=== PATIENT | male | born 1935 | race Caucasian/White ===

== ENCOUNTER 2017-05-02 07:51 | Emergency (ER) | payer MEDICARE, OTHER ==
[2017-05-02 07:52] VITALS: BP 139/81; PULSE 105; RESP 14; TEMP 97.9; O2SAT 97
[2017-05-02 08:23] VITALS: PULSE 87; RESP 18; O2SAT 97
[2017-05-02] MEDS ORDERED: XARE20TA PO (08:26)
[2017-05-02] MEDS ORDERED: CARV6.252 PO (08:26)
[2017-05-02] MEDS ORDERED: ASPI-516 CHEW (08:26)
[2017-05-02] MEDS ORDERED: SODIUM CHLORIDE 0.9% FLUSH 10 ML FLUSH IVF PRN (08:30)
--- NOTE | 2017-05-02 08:48 | PD ---
HPI Chief Complaint: Head Injury Time Seen by Provider: 08:22 Travel History International Travel<30 days: No Contact w/Intl Traveler<30days: No Traveled to known affect area: No History of Present Illness HPI This is an 82-year-old male with history of atrial fibrillation, previous CVA, who presents here with complaints of a right temporal scalp laceration after mechanical fall. Patient states she was getting out of bed when he tripped and fell and struck his head on the dresser. The patient denies any loss of consciousness. The patient is on Xarelto for his atrial fibrillation. He reports pain at the back of his neck. There is no numbness or tingling of his extremities. Patient does report dizziness when turning from [id number]. Her no other complaints time my examination. PFSH Past Medical History Hx Anticoagulant Therapy: Yes (XARELTO) Atrial Fibrillation: Yes Heart Rhythm Problems: Yes Cerebrovascular Accident: Yes Social History Alcohol Use: Yes Tobacco Use: No Substance Use: No Allergies-Medications (Allergen,Severity, Reaction): Coded Allergies: No Known Allergies (Unverified , 05/02/17) Reported Meds & Prescriptions Reported Meds & Active Scripts Active Reported Aspirin 81 Mg Chew 81 Mg CHEW DAILY Carvedilol 6.25 Mg Tab 6.25 Mg PO BID Xarelto (Rivaroxaban) 20 Mg Tab 20 Mg PO DAILY Review of Systems Except as stated in HPI: all other systems reviewed are Neg General / Constitutional: No: Fever, Chills HENT: Positive: Headaches, Lightheadedness, Neck Pain (right temporal), No: Neck Stiffness Cardiovascular: Positive: Irregular Rhythm, No: Chest Pain or Discomfort (with movement from side to side), Palpitations Respiratory: No: Cough (history of), Shortness of Breath Gastrointestinal: No: Nausea, Vomiting, Abdominal Pain Musculoskeletal: No: Weakness, Pain Skin: Positive Other (laceration to the right temporal area) Neurologic: Positive: Dizziness, Headache (right temporal area) Physical Exam Narrative GENERAL: Well developed well-nourished male in no acute respiratory tract. The patient does have a dressing on the head with blood noted at the right temporoparietal area soaking through the dressing. SKIN: Focused skin assessment warm/dry. HEAD: Normocephalic. Patient has a 1 cm laceration to the right temporoparietal area. There is an arterial that is bleeding. EYES: No scleral icterus. No injection or drainage. ENT: No nasal bleeding or discharge. Mucous membranes pink and moist. NECK: Trachea midline. No JVD. The patient does have mild paraspinous tenderness at the C4-C5 area. There is no posterior spinous process tenderness or deformity.. CARDIOVASCULAR: Irregularly irregular. Rate in the 80s and 90s. RESPIRATORY: No accessory muscle use. Clear to auscultation. Breath sounds equal bilaterally. GASTROINTESTINAL: Abdomen soft, non-tender, nondistended. Hepatic and splenic margins not palpable. MUSCULOSKELETAL: No obvious deformities. No clubbing. No cyanosis. No edema. NEUROLOGICAL: Awake and alert. No obvious cranial nerve deficits. Motor grossly within normal limits. Normal speech. Data Data Last Documented VS Vital Signs Date Time Temp Pulse Resp B/P (MAP) Pulse Ox O2 Delivery O2 Flow Rate FiO2 05/02/17 08:23 87 18 97 Room Air 05/02/17 07:52 97.9 Orders Orders Complete Blood Count With Diff (05/02/17 08:22) Ct Brain W/O Iv Contrast(Rout) (05/02/17 08:22) Ecg Monitoring (05/02/17 08:22) Iv Access Insert/Monitor (05/02/17 08:22) Oximetry (05/02/17 08:22) Sodium Chloride 0.9% Flush (Ns Flush) (05/02/17 08:30) Ct Cerv Spine W/O Contrast (05/02/17 08:22) Lidocai-Epi 1%-1:100,000 Inj (Xylocaine- (05/02/17 10:00) Cap,Shampoo/Cond Rinse Free Ea (05/02/17 09:51) Labs Laboratory Tests Test 05/02/17 08:40 White Blood Count 7.5 TH/MM3 Red Blood Count 4.68 MIL/MM3 Hemoglobin 16.3 GM/DL Hematocrit 49.5 % Mean Corpuscular Volume 105.9 FL Mean Corpuscular Hemoglobin 34.8 PG Mean Corpuscular Hemoglobin Concent 32.9 % Red Cell Distribution Width 13.8 % Platelet Count 229 TH/MM3 Mean Platelet Volume 8.6 FL Neutrophils (%) (Auto) 68.7 % Lymphocytes (%) (Auto) 22.1 % Monocytes (%) (Auto) 7.7 % Eosinophils (%) (Auto) 1.3 % Basophils (%) (Auto) 0.2 % Neutrophils # (Auto) 5.1 TH/MM3 Lymphocytes # (Auto) 1.7 TH/MM3 Monocytes # (Auto) 0.6 TH/MM3 Eosinophils # (Auto) 0.1 TH/MM3 Basophils # (Auto) 0.0 TH/MM3 CBC Comment DIFF FINAL Differential Comment MDM Medical Decision Making Medical Screen Exam Complete: Yes Emergency Medical Condition: Yes Differential Diagnosis Scalp laceration versus skull fracture versus intracranial hemorrhage Narrative Course 82-year-old male with history of AYvonne alcaraz, who is on Xarelto, presents after a mechanical fall and striking his head. Patient had a 1 cm laceration to his right temporal parietal area. There was a an arteriole that was bleeding. I placed 3 sonal in the area. It decreased the oozing from the arterial. A pressure dressing was placed and the patient was taken to CAT scan for CT head and neck. CT head and neck show no evidence of acute process. The patient's blood count is stable. He's had 2 further sutures placed by Irina Sargent. Rectal condition is he'll have sutures removed in 7-10 days. He is instructed to keep it clean and dry. Also recommend ice pack to the head. He'll be given a head injury sheet and if there is any changes, his family members are instructed to bring him back for further evaluation. Diagnosis Primary Impression: right temporal parietal scalp laceration Additional Impressions: Closed head injury History of atrial fibrillation Anticoagulated Patient Instructions: General Instructions Additional Instructions: Keep wound clean and dry. Return if any evidence of infection. Sutures and sonal removed in 7-10 days. Return if bleeding returns or any other reason the concerns her. Return if change in mentation or any other reason the concerns. Ice to the area 2-3 times a day for 2 days. Med/Other Pt SpecificInfo: Wound Care, Other (head injury instructions) Disposition: 01 DISCHARGE HOME Condition: Stable Otto Hudson MD May 02, 2017 08:48
[2017-05-02 08:54] LABS: AUTOMATED NEUTROPHIL # 5.1 TH/MM3 (1.8-7.7); BASOPHIL % 0.2 % (0.0-2.0); EOSINOPHIL # 0.1 TH/MM3 (0-0.4); EOSINOPHIL % 1.3 % (0.0-4.0); HEMATOCRIT 49.5 % (39.0-51.0); HEMOGLOBIN 16.3 GM/DL (13.0-17.0); LYMPH % 22.1 % (9.0-44.0); LYMPHOCYTE # 1.7 TH/MM3 (1.0-4.8); MEAN CELL VOLUME 105.9 FL (80.0-100.0); MEAN CORPUSCULAR HEMOGLOBIN 34.8 PG (27.0-34.0); MEAN CORPUSCULAR HGB CONC 32.9 % (32.0-36.0); MEAN PLATELET VOLUME 8.6 FL (7.0-11.0); MONO % 7.7 % (0.0-8.0); MONOCYTE # 0.6 TH/MM3 (0-0.9); NEUT % 68.7 % (16.0-70.0); PLATELET COUNT 229 TH/MM3 (150-450); RED BLOOD COUNT 4.68 MIL/MM3 (4.50-5.90); RED CELL DISTRIBUTION WIDTH 13.8 % (11.6-17.2); WHITE BLOOD COUNT 7.5 TH/MM3 (4.0-11.0)
--- NOTE | 2017-05-02 09:01 | RADRPT ---
EXAM DATE/TIME: 05/02/2017 08:46 [facility] COMPARISON: No previous studies available for comparison. INDICATIONS : Trauma, fall today onto head. RADIATION DOSE: 40.24 CTDIvol (mGy) MEDICAL HISTORY : Stroke. SURGICAL HISTORY : None. ENCOUNTER: Initial ACUITY: 1 day PAIN SCALE: 7/10 LOCATION: Bilateral head TECHNIQUE: Multiple contiguous axial images were obtained of the head. Using automated exposure control and adj ustment of the mA and/or kV according to patient size, radiation dose was kept as low as reasonably a chievable to obtain optimal diagnostic quality images. DICOM format image data is available electro nically for review and comparison. FINDINGS: CEREBRUM: The ventricles are normal for age. No evidence of midline shift, mass lesion, hemorrhage or acute in farction. Old infarct left orbital frontal region. No extra-axial fluid collections are seen. Mild ventricular prominence POSTERIOR FOSSA: The cerebellum and brainstem are intact. The 4th ventricle is midline. The cerebellopontine angle i s unremarkable. EXTRACRANIAL: The visualized portion of the orbits is intact. SKULL: The calvaria is intact. No evidence of skull fracture. CONCLUSION: Negative for acute traumatic injury Mild ventricular prominence Luigi Ortiz MD FACR on May 02, 2017 at 8:56 Board Certified Radiologist. This report was verified electronically.
--- NOTE | 2017-05-02 09:13 | RADRPT ---
EXAM DATE/TIME: 05/02/2017 08:46 [facility] COMPARISON: No previous studies available for comparison. INDICATIONS : Trauma, fall today onto head. RADIATION DOSE: 22.47 CTDIvol (mGy) MEDICAL HISTORY : Stroke. SURGICAL HISTORY : None. ENCOUNTER: Initial ACUITY: 1 day PAIN SCALE: 4/10 LOCATION: Bilateral neck TECHNIQUE: Volumetric scanning of the cervical spine was performed. Multiplanar reconstructions in the sagittal, coronal and oblique axial planes were performed. Using automated exposure control and adjustment o f the mA and/or kV according to patient size, radiation dose was kept as low as reasonably achievable to obtain optimal diagnostic quality images. DICOM format image data is available electronically f or review and comparison. FINDINGS: VERTEBRAE: Normal vertebral body height. ALIGNMENT: No evidence of subluxation. C2-C3: The bony spinal canal is normal in size. No evidence of disc bulge or herniation. The neural forami na are bilaterally patent. C3-C4: Moderate facet disease is present with bilateral neural foraminal encroachment. Large anterior osteo phytes are noted. C4-C5: Moderate facet disease is present with bilateral foraminal encroachment worse on the left C5-C6: Moderate uncinate ridging is present with mild spinal stenosis. Moderate bilateral foraminal encroac hment worse on the right C6-C7: Mild right-sided neural foraminal encroachment. C7-T1: The bony spinal canal is normal in size. No evidence of disc bulge or herniation. The neural forami na are bilaterally patent. Moderate vascular calcifications worse at the right carotid bifurcation. CONCLUSION: Degenerative changes, negative for fracture Moderate carotid calcifications on the right. Luigi Ortiz MD FACR on May 02, 2017 at 9:08 Board Certified Radiologist. This report was verified electronically.
[2017-05-02] MEDS ORDERED: LIDOCAINE 1%/EPINEPHrine 1:100,000 SOLN 20 ML VIAL INFIL ONE (10:00)
--- NOTE | 2017-05-02 10:25 | PD ---
Physical Exam Date Seen by Provider: May 02, 2017 Narrative 82-year-old male presents to the emergency department after a fall with head trauma. I was asked by Dr. Hudson to perform a laceration repair to the right temporal area. Please see his note for further information regarding patient's condition. LACERATION LOCATION: Right for head LENGTH: 1-1/2 cm NUMBER OF STITCHES/SONAL: 3 sonal, 2 5-0 Prolene REPAIR: The area of the laceration was prepped with Betadine and sterilely draped. The laceration was infiltrated with 1% lidocaine without epinephrine. The wound was copiously irrigated and explored without evidence of foreign body, tendon injury or neurovascular injury. The wound was closed using 5-0 Prolene. This was a single layer repair. A sterile dressing was applied. The patient was advised to keep the dressing clean and dry. Patient tolerated the procedure well. Data Data Last Documented VS Vital Signs Date Time Temp Pulse Resp B/P (MAP) Pulse Ox O2 Delivery O2 Flow Rate FiO2 05/02/17 10:36 05/02/17 08:23 87 18 97 Room Air 05/02/17 07:52 97.9 Orders Orders Complete Blood Count With Diff (05/02/17 08:22) Ct Brain W/O Iv Contrast(Rout) (05/02/17 08:22) Ecg Monitoring (05/02/17 08:22) Iv Access Insert/Monitor (05/02/17 08:22) Oximetry (05/02/17 08:22) Sodium Chloride 0.9% Flush (Ns Flush) (05/02/17 08:30) Ct Cerv Spine W/O Contrast (05/02/17 08:22) Lidocai-Epi 1%-1:100,000 Inj (Xylocaine- (05/02/17 10:00) Cap,Shampoo/Cond Rinse Free Ea (05/02/17 09:51) Ed Discharge Order (05/02/17 10:21) Labs Laboratory Tests Test 05/02/17 08:40 White Blood Count 7.5 TH/MM3 Red Blood Count 4.68 MIL/MM3 Hemoglobin 16.3 GM/DL Hematocrit 49.5 % Mean Corpuscular Volume 105.9 FL Mean Corpuscular Hemoglobin 34.8 PG Mean Corpuscular Hemoglobin Concent 32.9 % Red Cell Distribution Width 13.8 % Platelet Count 229 TH/MM3 Mean Platelet Volume 8.6 FL Neutrophils (%) (Auto) 68.7 % Lymphocytes (%) (Auto) 22.1 % Monocytes (%) (Auto) 7.7 % Eosinophils (%) (Auto) 1.3 % Basophils (%) (Auto) 0.2 % Neutrophils # (Auto) 5.1 TH/MM3 Lymphocytes # (Auto) 1.7 TH/MM3 Monocytes # (Auto) 0.6 TH/MM3 Eosinophils # (Auto) 0.1 TH/MM3 Basophils # (Auto) 0.0 TH/MM3 CBC Comment DIFF FINAL Differential Comment MDM Supervised Visit with AICHA: No Diagnosis Primary Impression: right temporal parietal scalp laceration Additional Impressions: Closed head injury History of atrial fibrillation Anticoagulated Patient Instructions: General Instructions, Laceration (ED) Departure Forms: Tests/Procedures Additional Instruction: Keep wound clean and dry. Return if any evidence of infection. Sutures and sonal removed in 7-10 days. Return if bleeding returns or any other reason the concerns her. Return if change in mentation or any other reason the concerns. Ice to the area 2-3 times a day for 2 days. Disposition: 01 DISCHARGE HOME Condition: Stable Gwendolyn Soto May 02, 2017 10:25
== END 2017-05-02 10:41 | disposition home or self-care (01) ==
LOC: NEPE 07:51
DX: S01.01XA Laceration without foreign body of scalp, initial encounter (principal); W01.190A Fall on same level from slipping, tripping and stumbling with subsequent striking against furniture, initial encounter; I48.91 Unspecified atrial fibrillation; Z79.01 Long term (current) use of anticoagulants; Z86.73 Personal history of transient ischemic attack (TIA), and cerebral infarction without residual deficits
CPT/HCPCS: 70450; 72125; 85025; 99285

== ENCOUNTER 2017-09-15 19:40 | Observation (INO) | payer MEDICARE, OTHER ==
[~2017-09-15] VITALS: Ht 188 cm; Wt 90.4 kg
[~2017-09-15 19:40] MED LIST: ASPI-516 CHEW; CARV6.252 PO; XARE20TA PO
[2017-09-15 19:55] VITALS: BP 168/72; PULSE 88; RESP 20; TEMP 98; O2SAT 98
[2017-09-15 19:56] VITALS: O2SAT 96
[2017-09-15] MEDS ORDERED: DIPHTH/TETANUS/ACEL PERTUSSIS (BOOSTER) 0.5 ML VIAL/PFS IM ONE (19:57)
[2017-09-15] MEDS ORDERED: ceFAZolin 2 GM PREMIX 50 ML ONE (19:57)
--- NOTE | 2017-09-15 20:03 | PD ---
HPI Chief Complaint: Trauma (Alert) Time Seen by Provider: 20:01 Travel History International Travel<30 days: No Contact w/Intl Traveler<30days: No History of Present Illness HPI Patient 82-year-old male presents emergency department for evaluation after a ground-level fall, he is on Eliquis and per hospital protocol this is a trauma alert level 2,, according to EMS he was drinking tonight, while walking on the street he apparently collapsed onto the concrete, he is unable to provide any history as to whether or not he blacked out or not, he is a GCS of 14, fairly confused, oriented to self only. Family states he is usually alert and awake and oriented and has periods where he is confused. No one was with him at the time of the events occurred they do not know if he blacked out or not. Patient history is somewhat limited given his altered mental status. PFSH Past Medical History Hx Anticoagulant Therapy: Yes (XARELTO) Atrial Fibrillation: Yes Heart Rhythm Problems: Yes Cerebrovascular Accident: Yes Social History Alcohol Use: Yes Tobacco Use: No Substance Use: No Allergies-Medications (Allergen,Severity, Reaction): Coded Allergies: No Known Allergies (Unverified , 05/02/17) Reported Meds & Prescriptions Reported Meds & Active Scripts Active Reported Aspirin 81 Mg Chew 81 Mg CHEW DAILY Carvedilol 6.25 Mg Tab 6.25 Mg PO BID Xarelto (Rivaroxaban) 20 Mg Tab 20 Mg PO DAILY Review of Systems Except as stated in HPI: all other systems reviewed are Neg Physical Exam Narrative GENERAL: Well-developed, well-nourished, obvious facial trauma. SKIN: There is contusion and hematoma over the right eyebrow, periorbital ecchymosis, gradually worsening while in the emergency department. There is also abrasion and contusion to the right wrist, some mild abrasions bilateral knees. HEAD: No davidson sign, periorbital ecchymosis on the right eye as above. Face is stable.. Normocephalic. EYES: Pupils equal and round. No scleral icterus. No injection or drainage. Pupils are 4 mm equal round and reactive. ENT: No nasal bleeding or discharge. Mucous membranes pink and moist. No septal hematoma. TMs are clear bilaterally peer NECK: Trachea midline. No JVD. CARDIOVASCULAR: Regular rate and rhythm. No murmur appreciated. RESPIRATORY: No accessory muscle use. Clear to auscultation. Breath sounds equal bilaterally. GASTROINTESTINAL: Abdomen soft, non-tender, nondistended. Hepatic and splenic margins not palpable. MUSCULOSKELETAL: Swelling of the right wrist over the ulna. Pulse motor and sensory intact distally in all 4 extremities, the remainder of the extremity exam of upper and lower extremities including the shoulders elbows left hand hips knees ankles and feet are atraumatic. No midline CT or L-spine tenderness. No clubbing. No cyanosis. No edema. NEUROLOGICAL: Awake and alert. No obvious cranial nerve deficits. Motor grossly within normal limits. Normal speech. PSYCHIATRIC: Appropriate mood and affect; insight and judgment normal. Data Data Last Documented VS Vital Signs Date Time Temp Pulse Resp B/P (MAP) Pulse Ox O2 Delivery O2 Flow Rate FiO2 09/15/17 22:35 98 20 151/77 (101) 98 Nasal Cannula 2.00 09/15/17 21:44 98.0 Orders Orders Cefazolin 2 Gm Premix (Ancef 2 Gm Premix (09/15/17 19:57) [id number] (Booster) Inj (Boostrix (09/15/17 19:57) I-Stat Profile (09/15/17 20:02) Complete Blood Count With Diff (09/15/17 20:02) Prothrombin Time / Inr (Pt) (09/15/17 20:02) Act Partial Throm Time (Ptt) (09/15/17 20:02) Type And Screen (09/15/17 20:02) Alcohol (Ethanol) (09/15/17 20:02) Urinalysis - C+S If Indicated (09/15/17 20:02) Drug Screen, Random Urine (09/15/17 20:02) Chest, Single Ap (09/15/17 20:02) Pelvis, Ap Only (Routine) (09/15/17 20:02) Ct Brain W/O Iv Contrast(Rout) (09/15/17 20:02) Ct Cerv Spine W/O Contrast (09/15/17 20:02) Ct Abd/Pel W Iv Contrast(Rout) (09/15/17 20:02) Ct Thorax/ Chest W Iv Contrast (09/15/17 20:02) Ct Thor Spine W Iv Contrast (09/15/17 20:02) Ct Lumb Spine W Iv Contrast (09/15/17 20:02) Ct Facial Bones W/O Iv Cont (09/15/17 20:02) Iv Access Insert/Monitor (09/15/17 20:02) Ecg Monitoring (09/15/17 20:02) Oximetry (09/15/17 20:02) Oxygen Administration (09/15/17 20:02) Electrocardiogram (09/15/17 ) Hand, Complete (Eqj5qly) (09/15/17 ) Iohexol 350 Inj (Omnipaque 350 Inj) (09/15/17 20:31) Troponin I (09/15/17 20:00) Splinting (09/15/17 ) Admit Order (Ed Use Only) (09/15/17 ) Aspirin Chew (Aspirin Chew) (09/16/17 09:00) Carvedilol (Coreg) (09/15/17 22:45) Labs Laboratory Tests Test 09/15/17 20:00 09/15/17 21:40 White Blood Count 8.6 TH/MM3 Red Blood Count 5.05 MIL/MM3 Hemoglobin 17.3 GM/DL Bedside Hemoglobin 17.0 G/DL Hematocrit 51.7 % Bedside Hematocrit 50.0 % Mean Corpuscular Volume 102.5 FL Mean Corpuscular Hemoglobin 34.3 PG Mean Corpuscular Hemoglobin Concent 33.5 % Red Cell Distribution Width 13.6 % Platelet Count 228 TH/MM3 Mean Platelet Volume 9.1 FL Neutrophils (%) (Auto) 56.5 % Lymphocytes (%) (Auto) 32.4 % Monocytes (%) (Auto) 9.5 % Eosinophils (%) (Auto) 1.2 % Basophils (%) (Auto) 0.4 % Neutrophils # (Auto) 4.8 TH/MM3 Lymphocytes # (Auto) 2.8 TH/MM3 Monocytes # (Auto) 0.8 TH/MM3 Eosinophils # (Auto) 0.1 TH/MM3 Basophils # (Auto) 0.0 TH/MM3 CBC Comment DIFF FINAL Differential Comment Prothrombin Time 12.2 SEC Prothromb Time International Ratio 1.2 RATIO Activated Partial Thromboplast Time 28.9 SEC Bedside Sodium 139 MMOL/L Bedside Potassium 4.6 MMOL/L Bedside Chloride 104 MMOL/L Bedside Blood Urea Nitrogen 11 MG/DL Bedside Creatinine 1.2 MG/DL Bedside Glucose 130 MG/DL Troponin I LESS THAN 0.02 NG/ML Ethyl Alcohol Level 155 MG/DL Urine Color LIGHT-YELLOW Urine Turbidity CLEAR Urine pH 7.0 Urine Specific [place] 1.039 Urine Protein TRACE mg/dL Urine Glucose (UA) NEG mg/dL Urine Ketones NEG mg/dL Urine Occult Blood NEG Urine Nitrite NEG Urine Bilirubin NEG Urine Urobilinogen LESS THAN 2.0 MG/DL Urine Leukocyte Esterase TRACE Urine RBC 1 /hpf Urine WBC 3 /hpf Microscopic Urinalysis Comment CULT NOT INDICATED Urine Opiates Screen NEG Urine Barbiturates Screen NEG Urine Amphetamines Screen NEG Urine Benzodiazepines Screen NEG Urine Cocaine Screen NEG Urine Cannabinoids Screen NEG MDM Medical Screen Exam Complete: Yes Emergency Medical Condition: Yes Differential Diagnosis Syncope, head injury, neck injury, pleural effusion Narrative Course Patient room to the emergency department, altered mental status after head injury, concussion is considered, CT head shows evidence of prior infarct but no acute injury. C-spine cleared by radiograph CAT scan and the c-collar was removed. Patient does have a radial styloid fracture. The patient was discussed with Dr. boateng on arrival and he recommended a gupta scan. He has not evaluated the patient personally but after we have discussed the radiographic findings he is clear the patient from a traumatic standpoint. At this time patient still remains somewhat altered, will ask for hospitalist observation Placed in thumb spica. Can follow up with orthopedics as outpatient. Trauma Alert - Level Two Trauma Alert Level Two: Full trauma team activate Diagnosis Diagnosis: Primary Impression: Syncope Additional Impressions: Head injury, closed Periorbital ecchymosis Radial styloid fracture Admitting Physician Requests: Observation Condition: Stable Jonathan Vang MD September 15, 2017 20:03
--- NOTE | 2017-09-15 20:17 | RADRPT ---
EXAM DATE/TIME: 09/15/2017 19:54 [facility] COMPARISON: No previous studies available for comparison. INDICATIONS : Trauma alert. Fall with altered mental status. MEDICAL HISTORY : Stroke. SURGICAL HISTORY : None. ENCOUNTER: Initial ACUITY: 1 day PAIN SCORE: Non-responsive. LOCATION: Bilateral pelvis FINDINGS: A single frontal view of the pelvis demonstrates no evidence of fracture. The bony pelvic ring is in tact. Bony mineralization is normal. The soft tissues are intact. CONCLUSION: No definite fracture is seen. Carl Hurd MD on September 15, 2017 at 20:14 Board Certified Radiologist. This report was verified electronically.
--- NOTE | 2017-09-15 20:27 | RADRPT ---
EXAM DATE/TIME: 09/15/2017 19:54 [facility] COMPARISON: No previous studies available for comparison. INDICATIONS : Trauma alert. Fall with altered mental status. MEDICAL HISTORY : Stroke. SURGICAL HISTORY : None. ENCOUNTER: Initial ACUITY: 1 day PAIN SCORE: Non-responsive. LOCATION: Bilateral chest FINDINGS: The heart size appears enlarged. The lungs are clear. A fracture is not clearly seen. No effusion is seen. CONCLUSION: No acute disease. Carl Hurd MD on September 15, 2017 at 20:24 Board Certified Radiologist. This report was verified electronically.
[2017-09-15] MEDS ORDERED: IOHEXOL 350 MG/ML 10 ML VIAL (for RAD DIAG) IVCONTRAST ONE (20:31)
--- NOTE | 2017-09-15 20:32 | RADRPT ---
EXAM DATE/TIME: 09/15/2017 20:01 [facility] COMPARISON: CT BRAIN W/O CONTRAST, May 02, 2017, 8:46. INDICATIONS : Trauma; fall. RADIATION DOSE: 56.35 CTDIvol (mGy) MEDICAL HISTORY : Non-responsive. SURGICAL HISTORY : Non-responsive. ENCOUNTER: Initial ACUITY: 1 day PAIN SCALE: Non-responsive LOCATION: cranial TECHNIQUE: Multiple contiguous axial images were obtained of the head. Using automated exposure control and adj ustment of the mA and/or kV according to patient size, radiation dose was kept as low as reasonably a chievable to obtain optimal diagnostic quality images. DICOM format image data is available electro nically for review and comparison. FINDINGS: CEREBRUM: The ventricles and cortical sulci are widened. There is an area of encephalomalacia at the posterior left frontal lobe. No evidence of midline shift, mass lesion, hemorrhage or acute infarction. No e xtra-axial fluid collections are seen. POSTERIOR FOSSA: The cerebellum and brainstem are intact. The 4th ventricle is midline. The cerebellopontine angle i s unremarkable. EXTRACRANIAL: There is a focal hematoma at the right frontal scalp. The visualized portion of the orbits is intact. SKULL: The calvaria is intact. No evidence of skull fracture. CONCLUSION: 1. No acute intracranial abnormality seen. 2. Prominent atrophy. 3. Right frontal scalp hematoma. Carl Hurd MD on September 15, 2017 at 20:28 Board Certified Radiologist. This report was verified electronically.
[2017-09-15 20:38] LABS: AUTOMATED NEUTROPHIL # 4.8 TH/MM3 (1.8-7.7); BASOPHIL % 0.4 % (0.0-2.0); EOSINOPHIL # 0.1 TH/MM3 (0-0.4); EOSINOPHIL % 1.2 % (0.0-4.0); HEMATOCRIT 51.7 % (39.0-51.0); HEMOGLOBIN 17.3 GM/DL (13.0-17.0); LYMPH % 32.4 % (9.0-44.0); LYMPHOCYTE # 2.8 TH/MM3 (1.0-4.8); MEAN CELL VOLUME 102.5 FL (80.0-100.0); MEAN CORPUSCULAR HEMOGLOBIN 34.3 PG (27.0-34.0); MEAN CORPUSCULAR HGB CONC 33.5 % (32.0-36.0); MEAN PLATELET VOLUME 9.1 FL (7.0-11.0); MONO % 9.5 % (0.0-8.0); MONOCYTE # 0.8 TH/MM3 (0-0.9); NEUT % 56.5 % (16.0-70.0); PLATELET COUNT 228 TH/MM3 (150-450); RED BLOOD COUNT 5.05 MIL/MM3 (4.50-5.90); RED CELL DISTRIBUTION WIDTH 13.6 % (11.6-17.2); WHITE BLOOD COUNT 8.6 TH/MM3 (4.0-11.0)
--- NOTE | 2017-09-15 20:39 | RADRPT ---
EXAM DATE/TIME: 09/15/2017 20:01 [facility] COMPARISON: No previous studies available for comparison. INDICATIONS : Trauma; fall. RADIATION DOSE: 21.96 CTDIvol (mGy) MEDICAL HISTORY : Non-responsive. SURGICAL HISTORY : Non-responsive. ENCOUNTER: Initial ACUITY: 1 day PAIN SCORE: Non-responsive LOCATION: facial TECHNIQUE: Volumetric scanning of the facial bones was performed. Using automated exposure control and adjustme nt of the mA and/or kV according to patient size, radiation dose was kept as low as reasonably achiev able to obtain optimal diagnostic quality images. DICOM format image data is available electronicall y for review and comparison. FINDINGS: ORBITS: The orbital and infraorbital osseous structures are intact. The retroconal structures have a normal configuration. No radiopaque foreign bodies are seen. NASAL BONE: The nasal bone and maxillary spine are intact ZYGOMATIC ARCHES: Symmetric without evidence of fracture. SINUSES: There is mild bilateral posterior ethmoid sinus disease. The maxillary and frontal sinuses are intact . No air-fluid levels seen. NASAL CAVITY: The nasal septum is intact and midline. The lacrimal ducts are intact. SOFT TISSUES: There is focal soft tissue swelling/hematoma in the right frontal scalp and right periorbital region. No radiopaque foreign bodies seen. INTRACRANIAL: No intracranial air seen. CRIBIFORM PLATE: Grossly intact. CONCLUSION: 1. Right frontal scalp and periorbital soft tissue swelling/hematoma. 2. No fracture seen. 3. Mild ethmoid sinus disease. Carl Hurd MD on September 15, 2017 at 20:31 Board Certified Radiologist. This report was verified electronically.
--- NOTE | 2017-09-15 20:45 | RADRPT ---
EXAM DATE/TIME: 09/15/2017 20:12 [facility] COMPARISON: No previous studies available for comparison. INDICATIONS : Trauma; fall. IV CONTRAST: 96 cc Omnipaque 350 (iohexol) IV ; Cumulative dose for multiple exams. RADIATION DOSE: 5.85 CTDIvol (mGy) ; Combined studies - Thorax/Abdomen/Pelvis MEDICAL HISTORY : Non-responsive. SURGICAL HISTORY : Non-responsive. ENCOUNTER: Initial ACUITY: 1 day PAIN SCALE: Non-responsive LOCATION: chest TECHNIQUE: Volumetric scanning of the chest was performed. Using automated exposure control and adjustment of t he mA and/or kV according to patient size, radiation dose was kept as low as reasonably achievable to obtain optimal diagnostic quality images. DICOM format image data is available electronically for review and comparison. Follow-up recommendations for detected pulmonary nodules are based at a minimum on nodule size and pa tient risk factors according to Fleischner Society Guidelines. FINDINGS: LUNGS: There is increased density at the subpleural posterior right upper and lower lobes and the posterior left lower lobe likely related to atelectasis. Contusion cannot see be excluded. PLEURA: There is a mild to moderate right pleural effusion and mild left effusion. MEDIASTINUM: The heart and great vessels demonstrate no acute abnormality. There is no mediastinal or hilar lymph adenopathy. AXILLAE: Within normal limits. No lymphadenopathy. SKELETAL: Within normal limits for patient age. There is an old healed left eighth rib fracture. MISCELLANEOUS: The patient is to have a CT of the abdomen and pelvis to follow. CONCLUSION: 1. Bilateral pleural effusions being mild to moderate on the right and mild on the left. 2. Subpleural areas of increased density likely related to atelectasis given the compressive changes of the effusions. Contusion cannot be excluded. Carl Hurd MD on September 15, 2017 at 20:37 Board Certified Radiologist. This report was verified electronically.
[2017-09-15 20:50] LABS: INTERNATIONAL NORMALIZED RATIO 1.2 RATIO; PROTHROMBIN TIME - PATIENT 12.2 SEC (9.8-11.6)
[2017-09-15 20:53] LABS: TROPONIN I LESS THAN 0.02 NG/ML (0.02-0.05)
--- NOTE | 2017-09-15 20:56 | RADRPT ---
EXAM DATE/TIME: 09/15/2017 20:12 [facility] COMPARISON: No previous studies available for comparison. INDICATIONS : Trauma; fall. IV CONTRAST: 96 cc Omnipaque 350 (iohexol) IV ; Cumulative dose for multiple exams. ORAL CONTRAST: No oral contrast ingested. RADIATION DOSE: 5.85 CTDIvol (mGy) ; Combined studies - Thorax/Abdomen/Pelvis MEDICAL HISTORY : Non-responsive. SURGICAL HISTORY : Non-responsive. ENCOUNTER: Initial ACUITY: 1 day PAIN SCALE: Non-responsive LOCATION: abdomen TECHNIQUE: Volumetric scanning of the abdomen and pelvis was performed. Using automated exposure control and ad justment of the mA and/or kV according to patient size, radiation dose was kept as low as reasonably achievable to obtain optimal diagnostic quality images. DICOM format image data is available electro nically for review and comparison. FINDINGS: LOWER LUNGS: There is a mild to moderate right pleural effusion and a mild left effusion. LIVER: Homogeneous density without lesion. There is a calcified granuloma. There is no dilation of the bili ronaldo tree. No calcified gallstones. SPLEEN: Normal size without lesion. There is a calcified granuloma. PANCREAS: Within normal limits. KIDNEYS: Normal in size and shape. There is no stone or hydronephrosis. There or small bilateral cysts. ADRENAL GLANDS: Within normal limits. VASCULAR: There is no aortic aneurysm. BOWEL/MESENTERY: There are scattered colonic diverticula. ABDOMINAL WALL: Within normal limits. RETROPERITONEUM: There is no lymphadenopathy. BLADDER: No wall thickening or mass. REPRODUCTIVE: Within normal limits. INGUINAL: There is no lymphadenopathy or hernia. MUSCULOSKELETAL: Within normal limits for patient age. There is degenerative change of the lumbar spine. CONCLUSION: 1. No acute abnormality seen. 2. Bilateral pleural effusions being worse on the right. 3. Calcified granulomas in the liver and spleen. 4. Colonic diverticula. Carl Hurd MD on September 15, 2017 at 20:50 Board Certified Radiologist. This report was verified electronically.
--- NOTE | 2017-09-15 21:01 | RADRPT ---
EXAM DATE/TIME: 09/15/2017 20:01 [facility] COMPARISON: CT CERVICAL SPINE W/O CONTRAST, May 02, 2017, 8:46. INDICATIONS : Trauma; fall. RADIATION DOSE: 24.2 CTDIvol (mGy) MEDICAL HISTORY : Non-responsive. SURGICAL HISTORY : Non-responsive. ENCOUNTER: Initial ACUITY: 1 day PAIN SCALE: Non-responsive LOCATION: neck TECHNIQUE: Volumetric scanning of the cervical spine was performed. Multiplanar reconstructions in the sagittal, coronal and oblique axial planes were performed. Using automated exposure control and adjustment o f the mA and/or kV according to patient size, radiation dose was kept as low as reasonably achievable to obtain optimal diagnostic quality images. DICOM format image data is available electronically f or review and comparison. FINDINGS: VERTEBRAE: Normal vertebral body height. ALIGNMENT: No evidence of subluxation. C2-C3: The bony spinal canal is normal in size. No evidence of disc bulge or herniation. There is left fac et hypertrophy. There is left neural foraminal narrowing. The right neural foramina is patent. C3-C4: The bony spinal canal is normal in size. No evidence of disc bulge or herniation. The neural forami na are bilaterally patent. There is bilateral facet hypertrophy. C4-C5: The bony spinal canal is normal in size. No evidence of disc bulge or herniation. There is bilatera l facet hypertrophy being worse on the left. The neural foramina are bilaterally patent. C5-C6: The disc demonstrates decreased height. There may be some fusion at the disc level. There is minimal posterior osteophytic ridging. Significant stenosis is not seen. There is uncovertebral hypertrophy a nd fusion. There is mild right neural foramina narrowing. The left neural foramina is patent. There i s mild left facet hypertrophy. C6-C7: The bony spinal canal is normal in size. No evidence of disc bulge or herniation. The neural forami na are bilaterally patent. There is moderate facet hypertrophy. C7-T1: The bony spinal canal is normal in size. No evidence of disc bulge or herniation. The neural forami na are bilaterally patent. There is facet hypertrophy being worse on the right. CONCLUSION: 1. No acute bony abnormality seen. 2. Chronic changes described above. Carl Hurd MD on September 15, 2017 at 20:54 Board Certified Radiologist. This report was verified electronically.
[2017-09-15 21:14] VITALS: RESP 20
--- NOTE | 2017-09-15 21:15 | RADRPT ---
EXAM DATE/TIME: 09/15/2017 20:23 [facility] COMPARISON: No previous studies available for comparison. INDICATIONS : Trauma alert. Fall with altered mental status. MEDICAL HISTORY : Stroke. SURGICAL HISTORY : None. ENCOUNTER: Initial ACUITY: 1 day PAIN SCORE: Non-responsive. LOCATION: Right upper extremity FINDINGS: Three view examination of the right hand demonstrates a fracture at the distal lateral radius extendi ng into the lateral aspect the radiocarpal joint. The age of this deformity is not known. Soft tissue swelling in this region is not seen. There appears be an old healed fracture deformity of the fifth metacarpal with some volar angulation of the distal fifth metacarpal. There is some degenerative frey ge of the carpal bones. There is soft tissue swelling seen over the distal medial forearm around the ulna. The ulna appears grossly intact. Vascular calcifications are seen. CONCLUSION: 1. Fracture deformity of the distal lateral radius. Age of this deformity is not known. 2. Focal soft tissue swelling at the distal medial forearm region. Carl Hurd MD on September 15, 2017 at 21:11 Board Certified Radiologist. This report was verified electronically.
--- NOTE | 2017-09-15 21:34 | RADRPT ---
EXAM DATE/TIME: 09/15/2017 20:12 [facility] COMPARISON: No previous studies available for comparison. INDICATIONS : Trauma; fall. IV CONTRAST: 96 cc Omnipaque 350 (iohexol) IV ; Cumulative dose for multiple exams. RADIATION DOSE: CTDIvol (mGy) ; Reconstructed from previous dataset, no dose MEDICAL HISTORY : Non-responsive. SURGICAL HISTORY : Non-responsive. ENCOUNTER: Initial ACUITY: 1 day PAIN SCALE: Non-responsive LOCATION: chest TECHNIQUE: Volumetric scanning of the thoracic spine was performed. Multiplanar reconstructions in the sagittal , coronal and oblique axial planes were performed. Using automated exposure control and adjustment o f the mA and/or kV according to patient size, radiation dose was kept as low as reasonably achievable to obtain optimal diagnostic quality images. DICOM format image data is available electronically fo r review and comparison. FINDINGS: The vertebral bodies of the thoracic spine are in normal alignment without evidence of subluxation. Vertebral body height is maintained. Marginal osteophytes are seen throughout. There is very promine nt hypertrophic change seen at the right T8-T9 facet extending anteriorly between the T8 and T9 pedic les at all on the posterior right vertebral body margins at this level. This is associated with narro wing of the right neural foramina. No fractures are seen. T1-T2: Normal. T2-T3: The thecal sac has a normal diameter. No evidence of disc bulge or protrusion. T3-T4: The thecal sac has a normal diameter. No evidence of disc bulge or protrusion. T4-T5: The thecal sac has a normal diameter. No evidence of disc bulge or protrusion. T5-T6: The thecal sac has a normal diameter. No evidence of disc bulge or protrusion. T6-T7: The thecal sac has a normal diameter. No evidence of disc bulge or protrusion. T7-T8: The thecal sac has a normal diameter. No evidence of disc bulge or protrusion. T8-T9: Again noted is the hypertrophy at the right facet, right lateral interpedicular region, and involving the posterior right lateral T8 and T9 vertebral bodies causing a moderate impression on the thecal s ac from the right. There is narrowing of the right neural foramina. No evidence of disc bulge or pro trusion. T9-T10: The thecal sac has a normal diameter. No evidence of disc bulge or protrusion. T10-T11: The thecal sac has a normal diameter. No evidence of disc bulge or protrusion. T11-T12: The thecal sac has a normal diameter. No evidence of disc bulge or protrusion. T12-L1: The thecal sac has a normal diameter. No evidence of disc bulge or protrusion. CONCLUSION: 1. No acute bony abnormality seen. 2. Chronic hypertrophic change at the right lateral T8-T9 level extending from the right facet joint to the posterior lateral right T8 and T9 vertebral bodies causing a moderate impression on the right lateral thecal sac. Carl Hurd MD on September 15, 2017 at 21:25 Board Certified Radiologist. This report was verified electronically.
--- NOTE | 2017-09-15 21:37 | RADRPT ---
EXAM DATE/TIME: 09/15/2017 20:12 [facility] COMPARISON: No previous studies available for comparison. INDICATIONS : Trauma; fall. IV CONTRAST: 96 cc Omnipaque 350 (iohexol) IV ; Cumulative dose for multiple exams. RADIATION DOSE: CTDIvol (mGy) ; Reconstructed from previous dataset, no dose MEDICAL HISTORY : Non-responsive. SURGICAL HISTORY : Non-responsive. ENCOUNTER: Initial ACUITY: 1 day PAIN SCALE: Non-responsive LOCATION: lower back TECHNIQUE: Volumetric scanning of the lumbar spine was performed. Multiplanar reconstructions in the sagittal, coronal and oblique axial planes were performed. Using automated exposure control and adjustment of the mA and/or kV according to patient size, radiation dose was kept as low as reasonably achievable t o obtain optimal diagnostic quality images. DICOM format image data is available electronically for review and comparison. FINDINGS: VERTEBRAE: Normal vertebral body height. ALIGNMENT: No evidence of subluxation. T12-L1: The thecal sac has a normal diameter. No evidence of disc bulge or protrusion. The neural foramina are patent bilaterally. L1-L2: The thecal sac has a normal diameter. No evidence of disc bulge or protrusion. The neural foramina are patent bilaterally. Anterior marginal osteophytes are present. L2-L3: The thecal sac has a normal diameter. No evidence of disc bulge or protrusion. The neural foramina are patent bilaterally. Anterior marginal osteophytes are seen. There is hypertrophic change between the spinous processes. L3-L4: The thecal sac has a normal diameter. No evidence of disc bulge or protrusion. The neural foramina are patent bilaterally. Anterior marginal osteophytes are seen. There is hypertrophic change between the spinous processes. L4-L5: The thecal sac has a normal diameter. No evidence of disc bulge or protrusion. The neural foramina are patent bilaterally. There is mild facet hypertrophy. L5-S1: The disc demonstrates decreased height. A significant impression on the thecal sac is not seen. There are anterior and lateral marginal osteophytes. There is moderate facet hypertrophy. There is narrowi ng of the neural foramina bilaterally. POST CONTRAST: No abnormal areas of enhancement are seen in the cord, dural paraspinal region. CONCLUSION: 1. No acute bony injury seen. 2. Chronic change as described above. Carl Hurd MD on September 15, 2017 at 21:32 Board Certified Radiologist. This report was verified electronically.
[2017-09-15 21:44] VITALS: BP 160/90; PULSE 100; RESP 20; TEMP 98; O2SAT 98
[2017-09-15 21:59] LABS: BILIRUBIN, URINE NEG (NEG); BLOOD, URINE NEG (NEG); GLUCOSE,URINE NEG (NEG); KETONE, URINE NEG (NEG); NITRITE,URINE NEG (NEG); URINE COLOR LIGHT-YELLOW (YELLW/STRAW); URINE LEUKOCYTE ESTERASE TRACE (NEG)
[2017-09-15 22:35] VITALS: BP 151/77; PULSE 98; RESP 20; O2SAT 98
[2017-09-15] MEDS ORDERED: SODIUM CHLORIDE 0.9% FLUSH 10 ML FLUSH IV FLUSH PRN (22:45)
[2017-09-15] MEDS: CARVEDILOL 6.25 MG TAB PO SCH (22:45)
--- NOTE | 2017-09-15 23:37 | RADRPT ---
EXAM DATE/TIME: 09/15/2017 22:49 [facility] COMPARISON: No previous studies available for comparison. INDICATIONS : Syncope. MEDICAL HISTORY : CVA. Anticoag therapy. A-fib. SURGICAL HISTORY : None. ENCOUNTER: Initial ACUITY: 1 day PAIN SCORE: 10/10 LOCATION: Bilateral neck PEAK SYSTOLIC VELOCITIES (cm/sec): ICA/CCA RATIO: Right: 1.1 Left: 0.6 ICA: Right: 62 Left: 63 CCA: Right: 56 Left: 101 ECA: Right: 277 Left: 103 VERTEBRAL: Right: 44 antegrade Left: 63 antegrade Elevated flow velocities and ICA/CCA ratios have been found to correlate with increased degrees of vessel stenosis, calculated as percentage of diameter relative to a normal segment of distal ICA/CCA FINDINGS: RIGHT CAROTID: No significant stenosis is visualized. Mild to moderate atherosclerotic disease is present. The wavef orms are within normal limits. LEFT CAROTID: No significant stenosis is visualized. Mild to moderate atherosclerotic disease is present. The wavef orms are within normal limits. VERTEBRAL ARTERIES: Antegrade flow is seen in both vertebral arteries. MISCELLANEOUS: None. CONCLUSION: Normal examination with mild to moderate atherosclerotic disease. Niles Tripp MD on September 15, 2017 at 23:35 Board Certified Radiologist. This report was verified electronically.
[2017-09-16] VITALS (11 sets, daily range): BP systolic 129–180; BP diastolic 64–103; PULSE 79–117; RESP 16–20; TEMP 97.6–98.4; O2SAT 93–96
[2017-09-16 00:14] LABS: ALBUMIN 2.5 GM/DL (3.4-5.0); BICARBONATE 20.2 MEQ/L (21.0-32.0); CALCIUM 6.2 MG/DL (8.5-10.1); CREATININE 0.79 MG/DL (0.60-1.30)
[2017-09-16 00:18] LABS: TOTAL BILIRUBIN ADULT 0.3 MG/DL (0.2-1.0); TOTAL PROTEIN 5.6 GM/DL (6.4-8.2)
[2017-09-16 00:20] LABS: CALCIUM-PROTEIN CORRECTED 6.9 MG/DL (8.5-10.1)
[2017-09-16] MEDS ORDERED: LORazepam 2 MG/ML VIAL IV PUSH ONE (04:00)
--- NOTE | 2017-09-16 04:25 | HHI.HP ---
HPI [facility] Primary Care Physician Unknown Admission Diagnosis Syncope Diagnoses: Travel History International Travel<30 Days: No Contact w/Intl Traveler <30 Da: No Traveled to Known Affected Are: No Sepsis Criteria Criteria Outcome: Meets multiple organ dys. criteria History of Present Illness 82-year-old male with a history of atrial fibrillation on Eliquis, history of CVA in the past, who presents to the ER after ground-level fall. He is uncertain of the circumstances of his fall, however had been noted to fall to the pavement. He denies going out drinking tonight, says he has not had any alcohol in 15 years. Alcohol level is elevated in the 150s. Patient was noted to be disoriented on admission, however on my exam he is somnolent but is oriented 3. He says feeling fine this morning, denies any chest pain, shortness of breath, nausea, vomiting. Does have a large cephalohematoma on the right side of head, reports pressure type pain at this location. Review of Systems Except as stated in HPI: all other systems reviewed are Neg Past Family Social History Past Medical History Atrial fibrillation Hypertension History of CVA Past Surgical History Patient denies any past surgical history Reported Medications Reported Meds & Active Scripts Active Reported Aspirin 81 Mg Chew 81 Mg CHEW DAILY Carvedilol 6.25 Mg Tab 6.25 Mg PO BID Xarelto (Rivaroxaban) 20 Mg Tab 20 Mg PO DAILY Allergies: Coded Allergies: No Known Allergies (Unverified , 05/02/17) Family History Patient says he is not sure of any parental past medical history Social History Non-smoker. Patient reports he quit drinking 50 years ago. He does admit that maybe he had some alcohol tonight. Denies any illicit drugs. Physical Exam Vital Signs Vital Signs Date Time Temp Pulse Resp B/P (MAP) Pulse Ox O2 Delivery O2 Flow Rate FiO2 09/16/17 00:47 98.2 104 18 163/81 (108) 93 175/85 (115) 09/15/17 22:35 98 20 151/77 (101) 98 Nasal Cannula 2.00 09/15/17 21:44 98.0 100 20 160/90 (113) 98 Room Air 09/15/17 21:14 20 09/15/17 21:14 Room Air 09/15/17 19:55 98.0 88 20 168/72 (104) 98 Physical Exam GENERAL: This is a well-nourished, well-developed patient, in no apparent distress. Patient is somnolent, but oriented 3. SKIN: No rashes, ecchymoses or lesions. Cool and dry. HEAD: She has very large cephalohematoma with superficial abrasion over the right orbit. Closure of right eyelid. Patient denies pain with gaze. EYES: Pupils equal round and reactive. Extraocular motions intact. No scleral icterus. No injection or drainage. ENT: Nose without bleeding, purulent drainage or septal hematoma. Throat without erythema, tonsillar hypertrophy or exudate. Uvula midline. Airway patent. NECK: Trachea midline. No JVD or lymphadenopathy. Supple, nontender, no meningeal signs. CARDIOVASCULAR: Regular rate and rhythm without murmurs, gallops, or rubs. RESPIRATORY: Clear to auscultation. Breath sounds equal bilaterally. No wheezes , rales, or rhonchi. GASTROINTESTINAL: Abdomen soft, non-tender, nondistended. No hepato-splenomegaly , or palpable masses. No guarding. MUSCULOSKELETAL: Extremities without clubbing, cyanosis, or edema. No joint tenderness, effusion, or edema noted. No calf tenderness. Negative Homans sign bilaterally. Patient has abrasions on the right arm, with right hand dressed. Superficial abrasions. NEUROLOGICAL: Awake and alert. Cranial nerves II through XII intact. Motor and sensory grossly within normal limits. Five out of 5 muscle strength in all muscle groups. Normal speech. Laboratory Laboratory Tests Test 09/15/17 20:00 09/15/17 21:40 09/15/17 23:30 White Blood Count 8.6 Red Blood Count 5.05 Hemoglobin 17.3 Bedside Hemoglobin 17.0 Hematocrit 51.7 Bedside Hematocrit 50.0 Mean Corpuscular Volume 102.5 Mean Corpuscular Hemoglobin 34.3 Mean Corpuscular Hemoglobin Concent 33.5 Red Cell Distribution Width 13.6 Platelet Count 228 Mean Platelet Volume 9.1 Neutrophils (%) (Auto) 56.5 Lymphocytes (%) (Auto) 32.4 Monocytes (%) (Auto) 9.5 Eosinophils (%) (Auto) 1.2 Basophils (%) (Auto) 0.4 Neutrophils # (Auto) 4.8 Lymphocytes # (Auto) 2.8 Monocytes # (Auto) 0.8 Eosinophils # (Auto) 0.1 Basophils # (Auto) 0.0 CBC Comment DIFF FINAL Differential Comment Prothrombin Time 12.2 Prothromb Time International Ratio 1.2 Activated Partial Thromboplast Time 28.9 Bedside Sodium 139 Bedside Potassium 4.6 Bedside Chloride 104 Bedside Blood Urea Nitrogen 11 Bedside Creatinine 1.2 Bedside Glucose 130 Troponin I LESS THAN 0.02 Ethyl Alcohol Level 155 Urine Color LIGHT-YELLOW Urine Turbidity CLEAR Urine pH 7.0 Urine Specific Bradford 1.039 Urine Protein TRACE Urine Glucose (UA) NEG Urine Ketones NEG Urine Occult Blood NEG Urine Nitrite NEG Urine Bilirubin NEG Urine Urobilinogen LESS THAN 2.0 Urine Leukocyte Esterase TRACE Urine RBC 1 Urine WBC 3 Microscopic Urinalysis Comment CULT NOT INDICATED Urine Opiates Screen NEG Urine Barbiturates Screen NEG Urine Amphetamines Screen NEG Urine Benzodiazepines Screen NEG Urine Cocaine Screen NEG Urine Cannabinoids Screen NEG Blood Urea Nitrogen 9 Creatinine 0.79 Random Glucose 106 Total Protein 5.6 Albumin 2.5 Calcium Level 6.2 Alkaline Phosphatase 15 Aspartate Amino Transf (AST/SGOT) 49 Alanine Aminotransferase (ALT/SGPT) 37 Total Bilirubin 0.3 Sodium Level 147 Potassium Level 3.5 Chloride Level 117 Carbon Dioxide Level 20.2 Anion Gap 10 Estimat Glomerular Filtration Rate 93 Protein Corrected Calcium 6.9 Result Diagram: 09/15/17199909/15/17 7480 Caprini VTE Risk Assessment Caprini VTE Risk Assessment: Mod/High Risk (score >= 2) Caprini Risk Assessment Model Point Value = 1 Point Value = 2 Point Value = 3 Point Value = 5 Age 41-60 Minor surgery BMI > 25 kg/m2 Swollen legs Varicose veins or History of unexplained or recurrent spontaneous Oral contraceptives or hormone replacement Sepsis (< 1 month) Serious lung disease, including pneumonia (< 1 month) Abnormal pulmonary function Acute myocardial infarction Congestive heart failure (< 1 month) History of inflammatory bowel disease Medical patient at bed rest Age 61-74 Arthroscopic surgery Major open surgery (> 45 min) Laparoscopic surgery (> 45 min) Malignancy Confined to bed (> 72 hours) Immobilizing plaster cast Central venous access Age >= 75 History of VTE Family history of VTE Factor V Leiden Prothrombin [id number] Lupus anticoagulant Anticardiolipin antibodies Elevated serum homocysteine Heparin-induced thrombocytopenia Other congenital or acquired thrombophilia Stroke (< 1 month) Elective arthroplasty Hip, pelvis, or leg fracture Acute spinal cord injury (< 1 month) Prophylaxis Regimen Total Risk Factor Score Risk Level Prophylaxis Regimen 0-1 Low Early ambulation 2 Moderate Order ONE of the following: *Sequential Compression Device (SCD) *Heparin 5000 units SQ BID 3-4 Higher Order ONE of the following medications: *Heparin 5000 units SQ TID *Enoxaparin/Lovenox 40 mg SQ daily (WT < 150 kg, CrCl > 30 mL/min) *Enoxaparin/Lovenox 30 mg SQ daily (WT < 150 kg, CrCl > 10-29 mL/min) *Enoxaparin/Lovenox 30 mg SQ BID (WT < 150 kg, CrCl > 30 mL/min) AND/OR *Sequential Compression Device (SCD) 5 or more Highest Order ONE of the following medications: *Heparin 5000 units SQ TID (Preferred with Epidurals) *Enoxaparin/Lovenox 40 mg SQ daily (WT < 150 kg, CrCl > 30 mL/min) *Enoxaparin/Lovenox 30 mg SQ daily (WT < 150 kg, CrCl > 10-29 mL/min) *Enoxaparin/Lovenox 30 mg SQ BID (WT < 150 kg, CrCl > 30 mL/min) AND *Sequential Compression Device (SCD) Assessment and Plan Assessment and Plan //Suspected syncope -Patient without any recollection of fall. Family apparently very concerned per ER report. -We will check echocardiogram, carotid ultrasound, Holter monitor. Monitor on telemetry. If all is negative with suspect this is likely secondary to alcohol intoxication on top of chronic dementia. //Toxic encephalopathy //Chronic dementia //Alcohol intoxication. =Alcohol level twice the legal driving limit on admission. //Hypernatremia. 147. Suspect possible lab error. Follow-up repeat. //Status post head injury //Right cephalohematoma, frontal -Hold anticoagulation for now. Continue to monitor. //Radial styloid fracture.. Immobilization. Consult orthopedics. //History of atrial fibrillation. On Xarelto at home. Holding Xarelto due to cephalhematoma. Continue Coreg, aspirin. Discussed Condition With Patient, nurse, ED physician Luis Duncan MD September 16, 2017 04:25
[2017-09-16] MEDS ORDERED: CALCIUM GLUCONATE INJ 1 GM in SODIUM CHLORIDE 0.9% INJ 100 ML IV ONE (04:45)
[2017-09-16] MEDS ORDERED: CARVEDILOL 6.25 MG TAB PO ONE (05:15)
[2017-09-16] MEDS ORDERED: LORazepam 1 MG TAB PO PRN (05:15)
[2017-09-16] MEDS ORDERED: LORazepam 2 MG TAB PO PRN (05:15)
[2017-09-16] MEDS ORDERED: LORazepam 2 MG/ML VIAL IV PUSH PRN ×4 (05:15)
[2017-09-16] MEDS ORDERED: FLUMAZENIL 0.5 MG/5 ML VIAL IV PUSH PRN (05:15)
[2017-09-16] MEDS ORDERED: ACETAMINOPHEN/HYDROcodone 325 MG/5 MG TAB PO PRN (05:15)
[2017-09-16] MEDS ORDERED: THIAMINE HCL 100 MG TAB PO ONE (05:30)
[2017-09-16] MEDS ORDERED: THIAMINE HCL 200 MG/2 ML VIAL IM ONE (05:30)
--- NOTE | 2017-09-16 08:15 | MB ---
cc: Lalito Rosenberg PA/Systems Technician Bhavin Palumbo MD DATE: 09/16/2017 CHIEF COMPLAINT: Right wrist pain status post fall. HISTORY OF PRESENT ILLNESS: The patient is an 82-year-old white male who presented to the ER as a trauma alert after suffering a fall from ground level. He was leaving the [facility] when he lost his balance and fell face first onto the pavement. The patient was confused at the scene and was not alert to self or place. Upon examination in the ER, he was alert and oriented x 3; however, does not have recollection of the fall. He states that he has minimal pain at the moment. He was placed in a thumb spica splint from the right wrist last night. He was reported to have had 2 glasses of wine prior to his fall. The patient has a history of alcoholism and stroke. He is on Eliquis because of his stroke. He also has a history of falls. Denies any chest pain, shortness of breath, nausea, or vomiting. Also was reported to have multiple skin tears as well as a large hematoma on his forehead and swelling of his lip. REVIEW OF SYSTEMS: Negative except for what is mentioned in the HPI. PAST MEDICAL HISTORY: Positive for atrial fibrillation, hypertension, history of cerebrovascular accident. PAST SURGICAL HISTORY: Denies any surgical history; however, has had multiple dental procedures and procedures on his ankle. REPORTED MEDICATIONS: Reports that he takes Xarelto 20 mg p.o. daily, as well as Carvedilol 6.25 mg p.o. b.i.d., as well as aspirin 81 mg daily. ALLERGIES: NO KNOWN ALLERGIES. FAMILY HISTORY: The patient says he is not sure of any parental past medical history. SOCIAL HISTORY: He is a nonsmoker, denies illicit drug use. He reports that he quit drinking multiple years ago. However, he is a chronic alcoholic with a longstanding history of drinking. He reportedly had 2 glasses of wine, but was found to have more than that tonight prior to his fall. PHYSICAL EXAMINATION: VITAL SIGNS: Temperature 98 degrees, pulse 107, respiratory rate 20, blood pressure 180/103, O2 saturation 93 on room air. GENERAL: A well-developed, well-nourished 82-year-old white male resting comfortably in no acute distress. HEAD: Considerable and noticeable size cephalohematoma on the right forehead. His eye is swollen shut. He has multiple bruising around the face and head. His right upper lip is also swollen significantly. He has blood visible on his teeth. EYES: Right eye is swollen shut. Left eye, the Extraocular motion is intact. Pupils are equal, round, and reactive to light. EARS: Hearing intact bilaterally. NECK: Supple. No evidence of lymphadenopathy. NEUROLOGIC: Cranial nerves 2-12 are grossly intact. CHEST: No use of accessory muscles of breathing and no wheezes heard at bedside. HEART: No grade 4 murmur present. ABDOMEN: Soft and nontender. MUSCULOSKELETAL: Right upper extremity, multiple skin tears along the right forearm. He has a thumb spica splint present. Splint is removed and he has minimal tenderness over the radial styloid. He does have a significant sized hematoma over the ulnar styloid. He has full motion of his fingers with full sensation in the median and ulnar nerve distribution. A left arm skin tear is present with full motion of the shoulder, elbow, wrist, and fingers. Full sensation distally. Bilateral lower extremities, full movement of the hip, knees, ankle and toes with no pain. Full sensation distally. IMAGING: X-rays of the right wrist and hand were reviewed which show a minimally displaced and small right radial styloid fracture. Otherwise, no acute bony abnormality. X-rays of the pelvis were also reviewed, which show no acute bony abnormality. A CT scan of the head was reviewed, which shows no fractures, but does show significant degenerative changes of the brain, as well as multiple areas of previous stroke. CT scan of the chest was reviewed, which shows bilateral pleural effusions that appear to be chronic in nature. ASSESSMENT: 1. Right radial styloid fracture. 2. Chronic alcoholism. 3. Bilateral chronic pleural effusions. 4. History of stroke. 5. Dementia. PLAN: At this point, the patient will have the thumb spica splint discontinued and will be placed in a cock-up wrist brace. At this point, he may fully weight bear. There is no surgical intervention needed at this time that. This should do well with conservative measures. We will re-x-ray in a few weeks to check the healing process. He will have continued medical management while he is here. I would recommend discharge to rehab as he is unsafe to go home alone. He will followup with orthopedics on an outpatient basis. Orthopedics will be signing off at this point. If any further issues develop, please reconsult. Thank you for this consultation. The above patient was reviewed and discussed with Dr. Palumbo, and he agrees with the above dictation. PATRICIA Villegas, PA/First Bhavin Palumbo MD Assist [place]/SONIA , 07:46 AM , 08:14 AM
[2017-09-16 08:28] LABS: BICARBONATE 22.7 MEQ/L (21.0-32.0); CALCIUM 8.6 MG/DL (8.5-10.1); CREATININE 0.87 MG/DL (0.60-1.30)
--- NOTE | 2017-09-16 08:37 | HHI.DCPOC ---
Discharge Care Plan Diagnosis: (1) Radial fracture (2) History of atrial fibrillation (3) Anticoagulated (4) Closed head injury Your Health Problems Are: Difficulty with ADL Bleeding Tendency Goals to Promote Your Health * To prevent worsening of your condition and complications * To maintain your health at the optimal level Directions to Meet Your Goals Take your medications as prescribed Follow your dietary instruction Follow activity as directed Keep your appointments as scheduled Take your immunizations and boosters as scheduled If your symptoms worsen call your PCP, if no PCP go to Urgent Care Center or Emergency Room Smoking is Dangerous to Your Health. Avoid second hand smoke Call the 24-hour hour crisis hotline for domestic abuse at Olivia Elkins September 16, 2017 08:37
--- NOTE | 2017-09-16 09:20 | EKG ---
Date Performed: 09/15/2017 Time Performed: 21:03:46 PTAGE: 82 years EKG: ATRIAL FIBRILLATION INDETERMINATE AXIS RIGHT BUNDLE BRANCH BLOCK ABNORMAL ECG NO PREVIOUS TRACING DOCTOR: Niles Calderon Interpretating Date/Time 09/16/2017 09:15:13
[2017-09-16] MEDS: ASPIRIN 81 MG CHEW TAB CHEW SCH (09:35)
[2017-09-16] MEDS: SODIUM CHLORIDE 0.9% FLUSH 10 ML FLUSH IV FLUSH SCH ×2 (09:36→22:52)
[2017-09-16] MEDS: CARVEDILOL 6.25 MG TAB PO SCH ×2 (09:36→22:52)
--- NOTE | 2017-09-16 10:42 | HHI.PR ---
Subjective Remarks Follow-up toxic encephalopathy/syncope/concussion September 16, 2017-patient seen and examined, alert and oriented 2. Denies any significant pain. Case discussed with PATRICIA Starkey however noel. States he will outpatient to be discharged to SNF but the patient can also go home with home health care. CIWA score of 3 Objective Vitals Vital Signs Date Time Temp Pulse Resp B/P (MAP) Pulse Ox O2 Delivery O2 Flow Rate FiO2 09/16/17 09:13 98.2 104 18 137/95 (109) 95 146/94 (111) 153/83 (106) 09/16/17 06:40 20 09/16/17 05:01 98.0 107 20 180/103 (128) 93 09/16/17 03:33 117 09/16/17 00:47 98.2 104 18 163/81 (108) 93 175/85 (115) 09/16/17 00:28 102 09/15/17 22:35 98 20 151/77 (101) 98 Nasal Cannula 2.00 09/15/17 21:44 98.0 100 20 160/90 (113) 98 Room Air 09/15/17 21:14 20 09/15/17 21:14 Room Air 09/15/17 19:56 96 2.00 09/15/17 19:55 98.0 88 20 168/72 (104) 98 I/O 09/15/17 09/15/17 09/15/17 09/16/17 09/16/17 09/16/17 07:00 15:00 23:00 07:00 15:00 23:00 # Voids 2 Result Diagram: 09/15/17199909/16/1722 Imaging Last Impressions Thoracic Spine CT 09/15/172001 Signed Impressions: Service Date/Time: Friday, September 15, 2017 20:12 - CONCLUSION: 1. No acute bony abnormality seen. 2. Chronic hypertrophic change at the right lateral T8-T9 level extending from the right facet joint to the posterior lateral right T8 and T9 vertebral bodies causing a moderate impression on the right lateral thecal sac. Carl Hurd MD Pelvis X-Ray 09/15/172001 Signed Impressions: Service Date/Time: Friday, September 15, 2017 19:54 - CONCLUSION: No definite fracture is seen. Carl Hurd MD Maxillofacial CT 09/15/172001 Signed Impressions: Service Date/Time: Friday, September 15, 2017 20:01 - CONCLUSION: 1. Right frontal scalp and periorbital soft tissue swelling/hematoma. 2. No fracture seen. 3. Mild ethmoid sinus disease. Carl Hurd MD Lumbar Spine CT 09/15/172001 Signed Impressions: Service Date/Time: Friday, September 15, 2017 20:12 - CONCLUSION: 1. No acute bony injury seen. 2. Chronic change as described above. Carl Hurd MD Head CT 09/15/172001 Signed Impressions: Service Date/Time: Friday, September 15, 2017 20:01 - CONCLUSION: 1. No acute intracranial abnormality seen. 2. Prominent atrophy. 3. Right frontal scalp hematoma. Carl Hurd MD Chest X-Ray 09/15/172001 Signed Impressions: Service Date/Time: Friday, September 15, 2017 19:54 - CONCLUSION: No acute disease. Carl Hurd MD Chest CT 09/15/172001 Signed Impressions: Service Date/Time: Friday, September 15, 2017 20:12 - CONCLUSION: 1. Bilateral pleural effusions being mild to moderate on the right and mild on the left. 2. Subpleural areas of increased density likely related to atelectasis given the compressive changes of the effusions. Contusion cannot be excluded. Carl Hurd MD Cervical Spine CT 09/15/172001 Signed Impressions: Service Date/Time: Friday, September 15, 2017 20:01 - CONCLUSION: 1. No acute bony abnormality seen. 2. Chronic changes described above. Carl Hurd MD Abdomen/Pelvis CT 09/15/172001 Signed Impressions: Service Date/Time: Friday, September 15, 2017 20:12 - CONCLUSION: 1. No acute abnormality seen. 2. Bilateral pleural effusions being worse on the right. 3. Calcified granulomas in the liver and spleen. 4. Colonic diverticula. Carl Hurd MD Hand X-Ray 09/15/17 Signed Impressions: Service Date/Time: Friday, September 15, 2017 20:23 - CONCLUSION: 1. Fracture deformity of the distal lateral radius. Age of this deformity is not known. 2. Focal soft tissue swelling at the distal medial forearm region. Carl Hurd MD Carotid Artery Ultrasound 09/15/17 0000 Signed Impressions: Service Date/Time: Friday, September 15, 2017 22:49 - CONCLUSION: Normal examination with mild to moderate atherosclerotic disease. Niles Tripp MD Objective Remarks GENERAL: NAD SKIN: Warm and dry. HEAD: Normocephalic. EYES: No scleral icterus. Right frontal scalp hematoma NECK: Supple, trachea midline. No JVD or lymphadenopathy. CARDIOVASCULAR: Regular rate and rhythm without murmurs, gallops, or rubs. RESPIRATORY: Breath sounds equal bilaterally. No accessory muscle use. GASTROINTESTINAL: Abdomen soft, non-tender, nondistended. MUSCULOSKELETAL: No cyanosis, or edema. Right upper extremity in sling BACK: Nontender without obvious deformity. No CVA tenderness. A/P Problem List: (1) Syncope ICD Code: R55 - Syncope and collapse Status: Acute (2) Radial fracture ICD Code: S52.90XA - Unspecified fracture of unspecified forearm, initial encounter for closed fracture (3) Head injury, closed ICD Code: S09.90XA - Unspecified injury of head, initial encounter Status: Acute (4) Periorbital ecchymosis ICD Code: S00.10XA - Contusion of unspecified eyelid and periocular area, initial encounter Status: Acute (5) Radial styloid fracture ICD Code: S52.513A - Displaced fracture of unspecified radial styloid process, initial encounter for closed fracture Status: Acute (6) Concussion ICD Code: S06.0X9A - Concussion with loss of consciousness of unspecified duration, initial encounter Assessment and Plan 82-year-old man with Suspected syncope All imaging studies noted and review Suspected alcohol intoxication versus chronic dementia Pending studies include echocardiogram, carotid ultrasound, Holter monitor. Monitor on telemetry. Toxic encephalopathy-resolved Chronic dementia Alcohol intoxication. Continue with CIWA protocol, rally pack Continue with treatment for dementia Monitor for DTs Hypernatremia Resolved Status post head injury Right cephalohematoma, frontal Concussion Continue to hold anticoagulation for now. Conservative management PT/OT to treat Radial styloid fracture. Appreciate input from orthopedic surgery. Continue with immobilization. Patient will benefit from admission to SNF History of atrial fibrillation. On Xarelto at home. However secondary to cephalohematoma, will continue to hold Xarelto Continue Coreg, aspirin. Hypertension Labile BP may be secondary to poorly controlled pain Leland Machado MD September 16, 2017 10:42
[2017-09-16] MEDS ORDERED: ACETAMINOPHEN 325 MG TAB PO PRN (10:45)
[2017-09-16] MEDS ORDERED: ONDANSETRON HCL 4 MG/2 ML VIAL IV PUSH PRN (10:45)
--- NOTE | 2017-09-16 11:08 | MG ---
cc: Marlyn Whitfield MD DATE OF : 1935 AGE: [age] years old EEG NUMBER: [id number] REFERRING PHYSICIAN: MD Dakota ROOM: [facility] NOTE: Awake, drowsy, asleep with photic only. CT: Atrophy, right scalp hematoma. An 82-year-old man admitted after having a few drinks, walking and fell, hit his head on the concrete, confused afterwards. Ethanol level was 155. MEDICATIONS: On thiamine, Ativan. Early in the morning at 4:30 was given [place], cefazolin. DESCRIPTION OF RECORD: Overall background rhythm of 8-8.5 Hz, 40-60 microvolts. The patient is talking. EKG: There looks to be a dysrhythmia at times. There is some artifact, but overall symmetrical background, some attenuation as the patient tends to fall asleep. Muscle artifact. No epileptic activity. Hyperventilation is not done. Photic stimulation does elicit a posterior driving response. IMPRESSION: Overall, when the patient is awake, the EEG looks normal without any epileptiform features. Clinical correlation. Marlyn Whitfield MD DF/HUY , 10:54 AM , 11:07 AM
[2017-09-17] VITALS: BP 161/84; PULSE 93; RESP 19; TEMP 98.5; O2SAT 93
[2017-09-17 05:00] VITALS: BP 154/76; PULSE 94; RESP 18; TEMP 97.8; O2SAT 94
[2017-09-17] MEDS ORDERED: GADODIAMIDE PF 287 MG/ML 20 ML VIAL (for RAD MRI) IVCONTRAST ONE (08:19)
[2017-09-17 08:51] VITALS: BP 161/76; PULSE 95; RESP 20; TEMP 98; O2SAT 94
[2017-09-17] MEDS ORDERED: THIAMINE HCL 100 MG TAB PO SCH (09:00)
--- NOTE | 2017-09-17 09:09 | RADRPT ---
EXAM DATE/TIME: 09/17/2017 07:57 [place] COMPARISON: CT BRAIN W/O CONTRAST, September 15, 2017, 20:01. INDICATIONS : Hematoma. Fall. Syncope. CONTRAST: 18 cc Omniscan (gadodiamide) IV MEDICAL HISTORY : A-fib. SURGICAL HISTORY : ORIF left ankle. Dental surgeries. ENCOUNTER: Subsequent ACUITY: 2 day PAIN SCORE: 0/10 LOCATION: head. TECHNIQUE: Multiplanar, multisequence MRI of the brain was performed both prior to and following the administrat ion of paramagnetic contrast. FINDINGS: CEREBRUM: Significant cortical and central atrophy. No evidence of midline shift, mass lesion, hemorrhage or a cute infarction. Old area of encephalomalacia in the posterior left frontal region. No extraaxial flu id collections are seen. The pituitary gland and suprasellar cistern are normal in configuration. WHITE MATTER: Minimal periventricular small vessel ischemic demyelination. POSTERIOR FOSSA: The cerebellum and brainstem are intact. The 4th ventricle is midline. The cerebellopontine angle is unremarkable. The cerebellar tonsils are normal in position. DIFFUSION IMAGING: No focal areas of restricted diffusion are seen. No evidence of acute infarction. EXTRACRANIAL: The visualized portions of the orbits and paranasal sinuses are unremarkable. Large cephalhematoma ov er the right frontal bone POST-CONTRAST: No abnormal areas of parenchymal or dural enhancement. No evidence of blood-brain barrier breakdown. CONCLUSION: 1. Large cephalhematoma over the right frontal bone. No acute intracranial hemorrhage. 2. Chronic changes with marked cortical and central atrophy as well as an old area of encephalomalaci a in region of gliosis in the posterior left frontal lobe. Bob Suazo MD on September 17, 2017 at 9:02 Board Certified Radiologist. This report was verified electronically.
[2017-09-17] MEDS: CARVEDILOL 6.25 MG TAB PO SCH (09:23)
[2017-09-17] MEDS: ASPIRIN 81 MG CHEW TAB CHEW SCH (09:23)
[2017-09-17] MEDS: SODIUM CHLORIDE 0.9% FLUSH 10 ML FLUSH IV FLUSH SCH (09:24)
[2017-09-17] MEDS ORDERED: RESP: ALBUTEROL 2.5 MG/IPRATROPIUM 0.5 MG NEB (PRN) NEB (10:15)
[2017-09-17] MEDS ORDERED: CARVEDILOL 6.25 MG TAB PO ONE (10:15)
--- NOTE | 2017-09-17 10:17 | HHI.PR ---
Subjective Remarks Follow-up toxic encephalopathy/syncope/concussion September 16, 2017-patient seen and examined, alert and oriented 2. Denies any significant pain. Case discussed with PATRICIA Starkey however noel. States he will outpatient to be discharged to SNF but the patient can also go home with home health care. CIWA score of 3 September 18, 2027-patient seen and examined, no acute event reported overnight. Discharged to [facility] pending Objective Vitals Vital Signs Date Time Temp Pulse Resp B/P (MAP) Pulse Ox O2 Delivery O2 Flow Rate FiO2 09/17/17 08:51 98.0 95 20 161/76 (104) 94 09/17/17 05:00 97.8 94 18 154/76 (102) 94 09/17/17 00:00 98.5 93 19 161/84 (109) 93 09/16/17 20:07 98.4 89 18 145/94 (111) 93 09/16/17 15:40 98.3 95 18 150/86 (107) 96 09/16/17 15:00 79 09/16/17 12:52 97.6 87 16 129/64 (85) 96 I/O 09/16/17 09/16/17 09/16/17 09/17/17 09/17/17 09/17/17 07:00 15:00 23:00 07:00 15:00 23:00 # Voids 2 1 Result Diagram: 09/15/17199909/16/17 0722 Imaging Last Impressions Brain MRI 09/17/17 0000 Signed Impressions: Service Date/Time: September 07:57 - CONCLUSION: 1. Large cephalhematoma over the right frontal bone. No acute intracranial hemorrhage. 2. Chronic changes with marked cortical and central atrophy as well as an old area of encephalomalacia in region of gliosis in the posterior left frontal lobe. Bob Suazo MD Thoracic Spine CT 09/15/172001 Signed Impressions: Service Date/Time: Friday, September 15, 2017 20:12 - CONCLUSION: 1. No acute bony abnormality seen. 2. Chronic hypertrophic change at the right lateral T8-T9 level extending from the right facet joint to the posterior lateral right T8 and T9 vertebral bodies causing a moderate impression on the right lateral thecal sac. Carl Hurd MD Pelvis X-Ray 09/15/172001 Signed Impressions: Service Date/Time: Friday, September 15, 2017 19:54 - CONCLUSION: No definite fracture is seen. Carl Hurd MD Maxillofacial CT 09/15/172001 Signed Impressions: Service Date/Time: Friday, September 15, 2017 20:01 - CONCLUSION: 1. Right frontal scalp and periorbital soft tissue swelling/hematoma. 2. No fracture seen. 3. Mild ethmoid sinus disease. Carl Hurd MD Lumbar Spine CT 09/15/172001 Signed Impressions: Service Date/Time: Friday, September 15, 2017 20:12 - CONCLUSION: 1. No acute bony injury seen. 2. Chronic change as described above. Carl Hurd MD Head CT 09/15/172001 Signed Impressions: Service Date/Time: Friday, September 15, 2017 20:01 - CONCLUSION: 1. No acute intracranial abnormality seen. 2. Prominent atrophy. 3. Right frontal scalp hematoma. Carl Hurd MD Chest X-Ray 09/15/172001 Signed Impressions: Service Date/Time: Friday, September 15, 2017 19:54 - CONCLUSION: No acute disease. Carl Hurd MD Chest CT 09/15/172001 Signed Impressions: Service Date/Time: Friday, September 15, 2017 20:12 - CONCLUSION: 1. Bilateral pleural effusions being mild to moderate on the right and mild on the left. 2. Subpleural areas of increased density likely related to atelectasis given the compressive changes of the effusions. Contusion cannot be excluded. Carl uHrd MD Cervical Spine CT 09/15/172001 Signed Impressions: Service Date/Time: Friday, September 15, 2017 20:01 - CONCLUSION: 1. No acute bony abnormality seen. 2. Chronic changes described above. Carl Hurd MD Abdomen/Pelvis CT 09/15/172001 Signed Impressions: Service Date/Time: Friday, September 15, 2017 20:12 - CONCLUSION: 1. No acute abnormality seen. 2. Bilateral pleural effusions being worse on the right. 3. Calcified granulomas in the liver and spleen. 4. Colonic diverticula. Carl Hurd MD Hand X-Ray 5/8/18 0000 Signed Impressions: Service Date/Time: Friday, September 15, 2017 20:23 - CONCLUSION: 1. Fracture deformity of the distal lateral radius. Age of this deformity is not known. 2. Focal soft tissue swelling at the distal medial forearm region. Carl Hurd MD Carotid Artery Ultrasound 09/15/17 0000 Signed Impressions: Service Date/Time: Friday, September 15, 2017 22:49 - CONCLUSION: Normal examination with mild to moderate atherosclerotic disease. Niles rTipp MD Objective Remarks GENERAL: NAD SKIN: Warm and dry. HEAD: Normocephalic. EYES: No scleral icterus. Right frontal scalp hematoma NECK: Supple, trachea midline. No JVD or lymphadenopathy. CARDIOVASCULAR: Regular rate and rhythm without murmurs, gallops, or rubs. RESPIRATORY: Breath sounds equal bilaterally. No accessory muscle use. GASTROINTESTINAL: Abdomen soft, non-tender, nondistended. MUSCULOSKELETAL: No cyanosis, or edema. Right upper extremity in sling BACK: Nontender without obvious deformity. No CVA tenderness. A/P Problem List: (1) Syncope ICD Code: R55 - Syncope and collapse Status: Acute (2) Radial fracture ICD Code: S52.90XA - Unspecified fracture of unspecified forearm, initial encounter for closed fracture (3) Head injury, closed ICD Code: S09.90XA - Unspecified injury of head, initial encounter Status: Acute (4) Periorbital ecchymosis ICD Code: S00.10XA - Contusion of unspecified eyelid and periocular area, initial encounter Status: Acute (5) Radial styloid fracture ICD Code: S52.513A - Displaced fracture of unspecified radial styloid process, initial encounter for closed fracture Status: Acute (6) Concussion ICD Code: S06.0X9A - Concussion with loss of consciousness of unspecified duration, initial encounter Assessment and Plan 82-year-old man with Suspected syncope All imaging studies noted and review Suspected alcohol intoxication versus chronic dementia EEG without any epileptiform features Continue with PT/OT Toxic encephalopathy-resolved Chronic dementia Alcohol intoxication. Continue with CIWA protocol, rally pack Continue with treatment for dementia Monitor for DTs Hypernatremia Resolved Status post head injury Right cephalohematoma, frontal Concussion Continue to hold anticoagulation for now. Conservative management PT/OT to treat Radial styloid fracture. Appreciate input from orthopedic surgery. Continue with immobilization. Patient will benefit from admission to SNF vs CIR History of atrial fibrillation. On Xarelto at home. However secondary to cephalohematoma, will continue to hold Xarelto Continue Coreg, aspirin. Hypertension Labile BP may be secondary to poorly controlled pain Will increase Coreg to 12.5 mg p.o. twice daily, and give 6.25 mg 1 now Leland Machado MD September 17, 2017 10:16
[2017-09-17 12:00] VITALS: BP 136/72; PULSE 87; RESP 20; TEMP 97.4; O2SAT 95
[2017-09-17] MEDS ORDERED: THIA100 PO (14:30)
[2017-09-17] MEDS ORDERED: HYDR-3516 PO (14:30)
[2017-09-17 16:30] VITALS: BP 150/77; PULSE 86; RESP 18; TEMP 98.5; O2SAT 96
--- NOTE | 2017-09-17 18:59 | ECHRPT ---
Indication: Syncope and collapse CONCLUSIONS There is mild tricuspid valve regurgitation. The estimated pulmonary arterial pressure is 32.8 mmHg. The transthoracic study is normal by two-dimensional, color flow imaging and Doppler interrogation. technically limited study, grossly normal lv size, wall thickness, EF@ 50% BP: / HR: Rhythm: MEASUREMENTS (Male / Female) Normal Values Technical Quality: 2D ECHO LV Diastolic Diameter PLAX 4.4 cm 4.2 - 5.9 / 3.9 - 5.3 cm LV Systolic Diameter PLAX 3.1 cm IVS Diastolic Thickness 1.0 cm 0.6 - 1.0 / 0.6 - 0.9 cm LVPW Diastolic Thickness 1.1 cm 0.6 - 1.0 / 0.6 - 0.9 cm LV Relative Wall Thickness 0.5 RV Internal Dim ED PLAX 2.1 cm M-MODE Aortic Root Diameter MM 3.9 cm LA Systolic Diameter MM 4.2 cm LA Ao Ratio MM 1.1 AV Cusp Separation MM 1.9 cm DOPPLER TR Peak Velocity 239.0 cm/s TR Peak Gradient 22.8 mmHg Right Atrial Pressure 10.0 mmHg Pulmonary Artery Systolic Pressu 32.8 mmHg Right Ventricular Systolic Press 32.8 mmHg FINDINGS LEFT VENTRICLE Normal left ventricular size and wall thickness. The left ventricular systolic function is normal wi th an estimated ejection fraction in the range of 60-65%. Left ventricular diastolic function parameters a re normal. RIGHT VENTRICLE Normal right ventricular size and systolic function. LEFT ATRIUM The left atrial size is normal. RIGHT ATRIUM The right atrial size is normal. ATRIAL SEPTUM Normal atrial septal thickness without atrial level shunting by limited color doppler interrogation. AORTA The aortic root and proximal ascending aorta are normal in size on limited imaging. MITRAL VALVE Structurally normal mitral valve. No mitral valve stenosis or regurgitation. AORTIC VALVE Trileaflet aortic valve. No aortic valve stenosis or regurgitation. TRICUSPID VALVE Structurally normal tricuspid valve. No tricuspid valve stenosis There is mild tricuspid valve regurgitation. The estimated pulmonary arterial pressure is 32.8 mmHg. PULMONARY VALVE No pulmonary valve regurgitation or stenosis. VESSELS The inferior vena cava is normal in size. PERICARDIUM No pericardial effusion. Glenroy Valverde MD, FACC, [facility] [place] (Electronically Signed) Final Date:17 Sep 2017 18:58
[2017-09-17] MEDS ORDERED: CARVEDILOL 12.5 MG TAB PO SCH (21:00)
--- NOTE | 2017-09-17 21:10 | HM ---
Date Performed: 09/16/2017 Time Performed: 11:29:00 HOOKUP DATE: 09/16/17 11:29:00 AM Wed ANALYSIS START TIME: 09/16/2017 11:34:00 AM ANALYSIS END TIME: 09/17/2017 8:45:13 AM PATIENT AGE: 82 PATIENT HEIGHT PATIENT WEIGHT DRUG LIST PATIENT DIAGNOSIS: SYNCOPE TEST NARRATIVE: The patient's average heart rate was 92 BPM. Heart rates greater than 120 B PM were noted 1% of the time. No episodes of bradycardia were noted. No pauses exceeding 2.0 sec onds were noted. 19 ventricular ectopics, which represented < 1% of the total beat count, were no ric. The highest ventricular ectopic frequency occurred from 10:00 PM to 11:00 PM Wed. During this time 5 VE(s) occurred. Ventricular ectopics were observed as 17 isolated beat(s) and as 1 couplet(s) . No runs were noted. No supraventricular ectopics were noted. No episodes of ST depression (defined as -1.0 mm or more) were noted in channel 1. No episodes of ST depression (defined as -1.0 mm or more) were noted in channel 2. In channel 3, a single episode of ST depression (defined as -1. 0 mm or more) occurred at 06:04:40 AM Mary Carmen with a maximum depression of -3.7 mm. TEST INTERPRETATION: 24 Hour Holter Monitor - Dr. Amado Dejesus Patient is atrial fibrillation th roughout the recording with an average heart rate of 92 beats per minute, minimum heart rate of 66 be ats per minute and a peak heart rate of 138 beats per minute. Peak rat was at 3:38 a.m. There is only rare ventricular premature beats of of beats. There were no pauses. There was no diary returned. Con clussion: Sinus rhythm throughout the recording. Ventricular rateis not optimumly controlled. Signed by : Amado Dejesus
== END 2017-09-17 17:48 | disposition home or self-care (01) ==
LOC: NEDAMB 19:40 → NEDA 22:40 → NEPFCDU 23:46
PROVIDERS: ADMIT Hospitalist; ATTEND Hospitalist
DX: R55 Syncope and collapse (principal); G92 Toxic encephalopathy; F03.90 Unspecified dementia, unspecified severity, without behavioral disturbance, psychotic disturbance, mood disturbance, and anxiety; F10.229 Alcohol dependence with intoxication, unspecified; E87.0 Hyperosmolality and hypernatremia; S06.2X9A Diffuse traumatic brain injury with loss of consciousness of unspecified duration, initial encounter; S00.10XA Contusion of unspecified eyelid and periocular area, initial encounter; S52.511A Displaced fracture of right radial styloid process, initial encounter for closed fracture; I10 Essential (primary) hypertension; J90 Pleural effusion, not elsewhere classified; I45.10 Unspecified right bundle-branch block; R94.31 Abnormal electrocardiogram [ECG] [EKG]; I48.91 Unspecified atrial fibrillation; Z79.899 Other long term (current) drug therapy; Z79.01 Long term (current) use of anticoagulants; Z86.73 Personal history of transient ischemic attack (TIA), and cerebral infarction without residual deficits; Z91.81 History of falling; Z23 Encounter for immunization; W01.0XXA Fall on same level from slipping, tripping and stumbling without subsequent striking against object, initial encounter
CPT/HCPCS: 70450; 70486; 70553; 71045; 71260; 72125; 72129; 72132; 72170; 73130; 74177; 80048; 80053; 80307; 81001; 84484; 85025; 85610; 85730; 86850; 86900; 86901; 90471; 90715; 93005; 93225; 93226; 93306; 93880; 95819; 96125; 96365; 96372; 96375; 97162; 97167; 97530; 99285; A9579; G0378; G8987; G8988; J0610; J0690; J2060; J3411; L3808; L3908; Q9967